=== PATIENT | female | born 1940 | race Caucasian/White ===

== ENCOUNTER → 2016-11-20 | Outpatient (CLI) | payer MEDICARE, BC ==
[~2016-11-20] MED LIST: ACETAMINOPHEN PO; AMLODIPINE BESY10 MG PO; AMMONIUM LACTA280 GM TOP; ATENOLOL50 MG PO; B COMPLEX1 TAB PO; BACLOFEN10 MG PO; BUMETANIDE0.5 MG PO; BUMEX PO; CALCIUM + D SO1 EACH PO; COLACE PO; DYAZIDE 37.5/251 CAP PO; FLEXERIL10 MG PO; GABAPENTIN300 M2 PO; HYDROCODON-ACE1 EAC7 PO; HYDROCODON-ACE1 EAC9 PO; NEURONTIN100 MG PO; NEXIUM PO; PRAVACHOL20 MG PO; PRAVASTATIN SOD40 MG PO; SEROQUEL XR50 MG PO; SERTRALINE HCL100 M1 PO; TENORMIN50 MG PO; TRIAMTERENE-HC1 EAC1 PO; VOLTAREN50 MG PO
== END | disposition home or self-care (01) ==
LOC: CSSDAY 11-13 14:00
DX: M81.0 Age-related osteoporosis without current pathological fracture (principal)
CPT/HCPCS: 36415; 82310; 96372; J0897